=== PATIENT | female | born 1960 | race Caucasian/White ===

== ENCOUNTER 2017-03-13 17:33 | Emergency (ER) | payer OTHER ==
[~2017-03-13] VITALS: Ht 160 cm; Wt 80.0 kg
[2017-03-13 17:35] VITALS: BP 182/87; PULSE 75; RESP 14; TEMP 98.4; O2SAT 100
[2017-03-13] MEDS ORDERED: SODIUM CHLOR 0.9% 1000 ML INJ 1,000 ML IV SCH (18:05)
[2017-03-13] MEDS ORDERED: ONDANSETRON HCL 4 MG/2 ML VIAL IVP ONE (18:15)
[2017-03-13] MEDS ORDERED: MORPHINE SULFATE 4 MG/ML INJ IV PUSH ONE (18:15)
[2017-03-13] MEDS ORDERED: KETOROLAC TROMETHAMINE 30 MG/ML (IVP) VIAL IVP ONE (18:15)
[2017-03-13] MEDS ORDERED: SODIUM CHLORIDE 0.9% FLUSH 10 ML FLUSH IV FLUSH PRN (18:15)
[2017-03-13] MEDS ORDERED: GABA800T PO (18:35)
--- NOTE | 2017-03-13 18:48 | PD ---
HPI Chief Complaint: Abdominal Pain Time Seen by Provider: 17:56 Travel History International Travel<30 days: No Contact w/Intl Traveler<30days: No Traveled to known affect area: No History of Present Illness HPI The patient is a 56-year-old female who presents emergency department for right upper quadrant abdominal pain. The patient states she's had 3 episodes a right upper quadrant abdominal pain this week, exacerbated after eating. The pain is located right upper quadrant, radiates to the back, is associated with nausea. The pain is described as sharp. The patient saw her primary physician on an outpatient basis who ordered her an outpatient ultrasound but advised her to come to the emergency department if her pain progress. The patient ate at approximately 2:00 this afternoon and then developed sharp right upper quadrant abdominal pain with nausea and vomiting. She denies any previous abdominal surgeries. She denies any known history of biliary stents. She denies any fever, chills, or sweats. Symptoms are moderate. Exacerbated by eating. There are no current alleviating factors. PFSH Past Medical History Diminished Hearing: No Medical other: Yes ("HOT FLASHES") ?: Not Past Surgical History Tonsillectomy: Yes Other Surgery: Yes (LEFT ELBOW SURGERY-FALL) Social History Alcohol Use: No Tobacco Use: Yes (/2 PPD) Substance Use: No Allergies-Medications (Allergen,Severity, Reaction): Coded Allergies: No Known Allergies (Verified Adverse Reaction, Unknown, 03/13/17) Reported Meds & Prescriptions Reported Meds & Active Scripts Active [place] (Hydrocodone-Acetaminophen) 5 Mg-325 Mg Tab 1 Tab PO Q6H PRN Reported Gabapentin 800 Mg Tab 800 Mg PO DIRECTED Review of Systems Except as stated in HPI: all other systems reviewed are Neg General / Constitutional: No: Fever HENT: No: Lightheadedness Cardiovascular: No: Chest Pain or Discomfort Respiratory: No: Shortness of Breath Gastrointestinal: Positive: Nausea, Abdominal Pain, No: Vomiting Genitourinary: No: Dysuria Musculoskeletal: No: Weakness Skin: No Rash Neurologic: No: Weakness Physical Exam Narrative GENERAL: Awake, alert, nontoxic-appearing 56-year-old female who appears her stated age and is in no acute respiratory distress. Patient does appear moderate discomfort. SKIN: Focused skin assessment warm/dry. HEAD: Atraumatic. Normocephalic. EYES: Pupils equal and round. No scleral icterus. No injection or drainage. ENT: No nasal bleeding or discharge. Mucous membranes pink and moist. NECK: Trachea midline. No JVD. CARDIOVASCULAR: Regular rate and rhythm. No murmur appreciated. RESPIRATORY: No accessory muscle use. Clear to auscultation. Breath sounds equal bilaterally. GASTROINTESTINAL: Abdomen soft, tender to palpation right upper quadrant. Positive Greenberg's. Negative McBurney's. Back: No CVA tenderness. MUSCULOSKELETAL: No obvious deformities. No clubbing. No cyanosis. No edema. NEUROLOGICAL: Awake and alert. No obvious cranial nerve deficits. Motor grossly within normal limits. Normal speech. PSYCHIATRIC: Appropriate mood and affect; insight and judgment normal. Data Data Last Documented VS Vital Signs Date Time Temp Pulse Resp B/P (MAP) Pulse Ox O2 Delivery O2 Flow Rate FiO2 03/13/17 22:23 03/13/17 20:15 82 16 98 Room Air 03/13/17 17:35 98.4 Orders Orders Complete Blood Count With Diff (03/13/17 18:05) Comprehensive Metabolic Panel (03/13/17 18:05) Lipase (03/13/17 18:05) Us Abdomen Gallbladder (03/13/17 ) Iv Access Insert/Monitor (03/13/17 18:05) Ecg Monitoring (03/13/17 18:05) Oximetry (03/13/17 18:05) Morphine Inj (Morphine Inj) (03/13/17 18:15) Ondansetron Inj (Zofran Inj) (03/13/17 18:15) Sodium Chlor 0.9% 1000 Ml Inj (Ns 1000 M (03/13/17 18:05) Sodium Chloride 0.9% Flush (Ns Flush) (03/13/17 18:15) Ketorolac Inj (Toradol Inj) (03/13/17 18:15) Ed Discharge Order (03/13/17 22:46) Labs Laboratory Tests Test 03/13/17 18:40 White Blood Count 10.8 TH/MM3 Red Blood Count 5.14 MIL/MM3 Hemoglobin 16.2 GM/DL Hematocrit 45.7 % Mean Corpuscular Volume 88.9 FL Mean Corpuscular Hemoglobin 31.5 PG Mean Corpuscular Hemoglobin Concent 35.4 % Red Cell Distribution Width 13.4 % Platelet Count 246 TH/MM3 Mean Platelet Volume 10.3 FL Neutrophils (%) (Auto) 69.1 % Lymphocytes (%) (Auto) 22.3 % Monocytes (%) (Auto) 6.1 % Eosinophils (%) (Auto) 1.6 % Basophils (%) (Auto) 0.9 % Neutrophils # (Auto) 7.5 TH/MM3 Lymphocytes # (Auto) 2.4 TH/MM3 Monocytes # (Auto) 0.7 TH/MM3 Eosinophils # (Auto) 0.2 TH/MM3 Basophils # (Auto) 0.1 TH/MM3 CBC Comment DIFF FINAL Differential Comment Blood Urea Nitrogen 11 MG/DL Creatinine 1.16 MG/DL Random Glucose 136 MG/DL Total Protein 7.5 GM/DL Albumin 4.0 GM/DL Calcium Level 9.1 MG/DL Alkaline Phosphatase 92 U/L Aspartate Amino Transf (AST/SGOT) 35 U/L Alanine Aminotransferase (ALT/SGPT) 26 U/L Total Bilirubin 0.6 MG/DL Sodium Level 139 MEQ/L Potassium Level 3.9 MEQ/L Chloride Level 106 MEQ/L Carbon Dioxide Level 23.0 MEQ/L Anion Gap 10 MEQ/L Estimat Glomerular Filtration Rate 49 ML/MIN Lipase 193 U/L [facility] Medical Decision Making Medical Screen Exam Complete: Yes Emergency Medical Condition: Yes Medical Record Reviewed: Yes Differential Diagnosis Differential diagnosis includes cholecystitis, cholelithiasis, biliary colic, pancreatitis, peptic ulcer disease, atypical appendicitis, atypical diverticulitis. Narrative Course IV was established, labs are drawn and sent, and the patient was placed on cardiac telemetry monitoring and continuous pulse oximetry monitoring. Ultrasound of the right upper quadrant was ordered. LFTs and lipase were sent to lab. The patient was administered morphine, Toradol, Zofran, and IV fluids. The patient was signed out to the oncoming physician at 7 PM with labs and ultrasound pending. Diagnosis Primary Impression: Right upper quadrant abdominal pain Scripts Hydrocodone-Acetaminophen ([place]) 5 Mg-325 Mg Tab 1 TAB PO Q6H Y for PAIN, #10 TAB 0 Refills Prov: Moe Lucero MD 03/13/17 Condition: Stable Angel Lr MD Mar 13, 2017 18:48
[2017-03-13 18:49] VITALS: O2SAT 100
[2017-03-13 18:50] VITALS: BP 176/98; PULSE 56; RESP 20; O2SAT 100
[2017-03-13 19:14] LABS: ALT (GPT) 26 U/L (10-53); AUTOMATED NEUTROPHIL # 7.5 TH/MM3 (1.8-7.7); BASOPHIL # 0.1 TH/MM3 (0-0.2); BASOPHIL % 0.9 % (0.0-2.0); EOSINOPHIL # 0.2 TH/MM3 (0-0.4); EOSINOPHIL % 1.6 % (0.0-4.0); HEMATOCRIT 45.7 % (35.0-46.0); HEMO FLAGS DIFF FINAL; LYMPH % 22.3 % (9.0-44.0); LYMPHOCYTE # 2.4 TH/MM3 (1.0-4.8); MEAN CELL VOLUME 88.9 FL (80.0-100.0); MEAN CORPUSCULAR HEMOGLOBIN 31.5 PG (27.0-34.0); MEAN CORPUSCULAR HGB CONC 35.4 % (32.0-36.0); MONO % 6.1 % (0.0-8.0); NEUT % 69.1 % (16.0-70.0); PLATELET COUNT 246 TH/MM3 (150-450); RED BLOOD COUNT 5.14 MIL/MM3 (4.00-5.30); RED CELL DISTRIBUTION WIDTH 13.4 % (11.6-17.2); WHITE BLOOD COUNT 10.8 TH/MM3 (4.0-11.0)
[2017-03-13 19:16] LABS: ALKALINE PHOSPHATASE 92 U/L (45-117); TOTAL BILIRUBIN ADULT 0.6 MG/DL (0.2-1.0)
[2017-03-13 19:18] LABS: ANION GAP 10 MEQ/L (5-15); AST (GOT) 35 U/L (15-37); BLOOD UREA NITROGEN 11 MG/DL (7-18); CHLORIDE 106 MEQ/L (98-107); GLOMERULAR FILTRATION RATE 49 ML/MIN (>89); POTASSIUM 3.9 MEQ/L (3.5-5.1); SODIUM (NA) 139 MEQ/L (136-145)
--- NOTE | 2017-03-13 19:34 | RADRPT ---
EXAM DATE/TIME: 03/13/2017 19:00 [place] COMPARISON: No previous studies available for comparison. INDICATIONS : Right upper quadrant pain. MEDICAL HISTORY : Mumps. Left elbow fractures. Measles. SURGICAL HISTORY : Tonsillectomy. Musculoskeletal surgery. ENCOUNTER: Initial ACUITY: 2 weeks PAIN SCORE: 9/10 LOCATION: Right upper quadrant MEASUREMENTS: LIVER: 13.9 cm length COMMON DUCT: 5 mm RIGHT KIDNEY: 9.5 x 4.9 x 4.4 cm FINDINGS: LIVER: Normal echotexture without focal lesion or ductal dilatation. COMMON DUCT: No intraluminal mass or stone visualized. GALLBLADDER: Gallbladder distended with a small gallstone in the gallbladder neck. Gallbladder sludge present. Mil d wall thickening to 4 mm. PANCREAS: The visualized portions are within normal limits. RIGHT KIDNEY: No evidence of hydronephrosis, stone, or mass. CONCLUSION: 1. Distended gallbladder with stone lodged in gallbladder neck and mild gallbladder wall thickening. Luis Rivera MD on March 13, 2017 at 19:31 Board Certified Radiologist. This report was verified electronically.
[2017-03-13 20:15] VITALS: BP 114/66; PULSE 82; RESP 16; O2SAT 98
--- NOTE | 2017-03-13 22:34 | PD ---
Physical Exam Date Seen by Provider: Mar 13, 2017 Time Seen by Provider: 19:30 Narrative Patient's ultrasound was read as a gallstone obstructing the neck of the gallbladder with a distended gallbladder there is no pericholecystic fluid patient's labs LFTs total bili are all normal white count is negative there is no neutrophilic shift is no signs of cholecystitis I called Dr. Gates who says he will see her in his office tomorrow or if we admitted her medically he will be a consult I discussed with the patient. She is pain-free. She has no signs cholecystitis I repeat exam is there is no pain with percussion of the right upper quadrant or the epigastrium QUADRANTS palpated and percussed no pain. We' ll discharge patient home with follow-up as an outpatient I will prescribe her Motrin as well as [place] for a few pills to get the pain returns and Dr. Lake's office number. Patient agrees with the plan Data Data Last Documented VS Vital Signs Date Time Temp Pulse Resp B/P (MAP) Pulse Ox O2 Delivery O2 Flow Rate FiO2 03/13/17 22:23 03/13/17 20:15 82 16 98 Room Air 03/13/17 17:35 98.4 Orders Orders Complete Blood Count With Diff (03/13/17 18:05) Comprehensive Metabolic Panel (03/13/17 18:05) Lipase (03/13/17 18:05) Us Abdomen Gallbladder (03/13/17 ) Iv Access Insert/Monitor (03/13/17 18:05) Ecg Monitoring (03/13/17 18:05) Oximetry (03/13/17 18:05) Morphine Inj (Morphine Inj) (03/13/17 18:15) Ondansetron Inj (Zofran Inj) (03/13/17 18:15) Sodium Chlor 0.9% 1000 Ml Inj (Ns 1000 M (03/13/17 18:05) Sodium Chloride 0.9% Flush (Ns Flush) (03/13/17 18:15) Ketorolac Inj (Toradol Inj) (03/13/17 18:15) Labs Laboratory Tests Test 03/13/17 18:40 White Blood Count 10.8 TH/MM3 Red Blood Count 5.14 MIL/MM3 Hemoglobin 16.2 GM/DL Hematocrit 45.7 % Mean Corpuscular Volume 88.9 FL Mean Corpuscular Hemoglobin 31.5 PG Mean Corpuscular Hemoglobin Concent 35.4 % Red Cell Distribution Width 13.4 % Platelet Count 246 TH/MM3 Mean Platelet Volume 10.3 FL Neutrophils (%) (Auto) 69.1 % Lymphocytes (%) (Auto) 22.3 % Monocytes (%) (Auto) 6.1 % Eosinophils (%) (Auto) 1.6 % Basophils (%) (Auto) 0.9 % Neutrophils # (Auto) 7.5 TH/MM3 Lymphocytes # (Auto) 2.4 TH/MM3 Monocytes # (Auto) 0.7 TH/MM3 Eosinophils # (Auto) 0.2 TH/MM3 Basophils # (Auto) 0.1 TH/MM3 CBC Comment DIFF FINAL Differential Comment Blood Urea Nitrogen 11 MG/DL Creatinine 1.16 MG/DL Random Glucose 136 MG/DL Total Protein 7.5 GM/DL Albumin 4.0 GM/DL Calcium Level 9.1 MG/DL Alkaline Phosphatase 92 U/L Aspartate Amino Transf (AST/SGOT) 35 U/L Alanine Aminotransferase (ALT/SGPT) 26 U/L Total Bilirubin 0.6 MG/DL Sodium Level 139 MEQ/L Potassium Level 3.9 MEQ/L Chloride Level 106 MEQ/L Carbon Dioxide Level 23.0 MEQ/L Anion Gap 10 MEQ/L Estimat Glomerular Filtration Rate 49 ML/MIN Lipase 193 U/L MDM Supervised Visit with MARTHA: No Diagnosis Primary Impression: Right upper quadrant abdominal pain Additional Impression: Gall stones Referrals: Jose Alfredo Lake MD Patient Instructions: Gallstones (ED), General Instructions Departure Forms: Tests/Procedures Additional Instruction: Call Dr Lake surgeon tomorrow office hours are 1-5 pm to arrange possible elective surgery Scripts Hydrocodone-Acetaminophen ([place]) 5 Mg-325 Mg Tab 1 TAB PO Q6H Y for PAIN, #10 TAB 0 Refills Prov: Moe Lucero MD 03/13/17 Disposition: 01 DISCHARGE HOME Condition: Good Moe Lucero MD Mar 13, 2017 22:34
[2017-03-13] MEDS ORDERED: NORC5TAB PO (22:44)
== END 2017-03-13 22:49 | disposition home or self-care (01) ==
LOC: NEPC 17:33
DX: K80.80 Other cholelithiasis without obstruction (principal); F17.200 Nicotine dependence, unspecified, uncomplicated
CPT/HCPCS: 76705; 80053; 83690; 85025; 96361; 96374; 96375; 99285; J1885; J2270; J2405; J7030